=== PATIENT | female | born 1970 | race Two or more races ===

== ENCOUNTER 2024-12-16 04:38 | Emergency (ER) | payer OTHER ==
[~2024-12-16] VITALS: Ht 154.9 cm; Wt 59.0 kg
[2024-12-16 05:12] VITALS: BP 100/65
[2024-12-16] MEDS ORDERED: KETOROLAC TROMETHAMINE 60 MG VIAL IM STA (06:47)
[2024-12-16] MEDS ORDERED: ACETAMINOPHEN 500 MG GEL..CAP PO STA (06:48)
[2024-12-16] MEDS ORDERED: KETOROLAC TROMETHAMINE 60 MG VIAL IM ONE (06:49)
[2024-12-16] MEDS ORDERED: ACETAMINOPHEN 500 MG GEL..CAP PO ONE (06:49)
[2024-12-16 07:16] LABS: BASO % 0.2 % (0.1-1.2); EOS # 0.00 (0.04-0.54); EOS % 0.0 % (0.7-7.0); LYMPH # 1.01 (1.18-3.74); LYMPH % 15.2 % (19.3-53.1); MEAN PLATELET VOLUME 10.30 fl (9.4-12.4); MONO # 0.46 (0.24-0.82); MONO % 6.9 % (4.7-12.5); NEUT # 5.15 (1.56-6.13); NEUT % 77.5 % (34.0-71.1); RED CELL DISTRIBUTION WIDTH 12.7 % (11.6-14.4)
[2024-12-16 07:48] LABS: COVID-19 AG NEGATIVE (NEGATIVE)
[2024-12-16 08:55] VITALS: O2SAT 100
== END 2024-12-16 08:55 | disposition home or self-care (01) ==
LOC: ER 04:38
DX: J10.1 Influenza due to other identified influenza virus with other respiratory manifestations (principal); Z20.822 Contact with and (suspected) exposure to COVID-19; Z88.0 Allergy status to penicillin; Z88.8 Allergy status to other drugs, medicaments and biological substances
CPT/HCPCS: 36415; 96372; 99282; J1885